=== PATIENT | male | born 1940 | race Caucasian/White ===

== ENCOUNTER 2016-10-09 07:40 | Outpatient (CLI) | payer OTHER ==
[2015-11-20 16:45] VITALS: BP 143/62
[2016-10-10 09:31] LABS: ADENOVIRUS F 40/41 Not Detected (Not Detected); ASTROVIRUS Not Detected (Not Detected); C. DIFFICILE (TOXIN A/B) Not Detected (Not Detected); CRYPTOSPORIDIUM Not Detected (Not Detected); CYCLOSPORA CAYETANENSIS Not Detected (Not Detected); ENTAMOEBA HISTOLYTICA Not Detected (Not Detected); GIARDIA LAMBLIA Not Detected (Not Detected); ROTAVIRUS A Not Detected (Not Detected); SAPOVIRUS Not Detected (Not Detected); VIBRIO CHOLERAE Not Detected (Not Detected)
== END 2016-10-09 07:41 ==
LOC: LAB 07:40
PROVIDERS: ATTEND Physician Assistant
DX: R19.7 Diarrhea, unspecified (principal)
CPT/HCPCS: 87045; 87046; 87427; 87507

== ENCOUNTER 2016-11-26 16:06 | Outpatient (CLI) | payer OTHER ==
[2015-11-20 16:45] VITALS: BP 143/62
[2016-11-26 16:55] LABS: eGFR (African) > 60; eGFR (Non-African) > 60
== END 2016-11-26 16:07 ==
LOC: LAB 16:06
PROVIDERS: ATTEND Family Medicine
DX: E11.9 Type 2 diabetes mellitus without complications (principal); I10 Essential (primary) hypertension
CPT/HCPCS: 36415; 80053; 80061; 82043; 83036

== ENCOUNTER 2017-06-24 08:24 | Outpatient (CLI) | payer OTHER ==
[2015-11-20 16:45] VITALS: BP 143/62
[2017-06-24 09:12] LABS: eGFR (African) > 60; eGFR (Non-African) > 60
== END 2017-06-24 08:25 ==
LOC: LAB 08:24
PROVIDERS: ATTEND Family Medicine
DX: E11.9 Type 2 diabetes mellitus without complications (principal); E78.5 Hyperlipidemia, unspecified; I10 Essential (primary) hypertension
CPT/HCPCS: 36415; 80053; 80061; 83036

== ENCOUNTER 2018-02-09 11:33 | Outpatient (CLI) | payer OTHER ==
[2015-11-20 16:45] VITALS: BP 143/62
--- NOTE | 2018-02-09 12:53 | Diagnostic Imaging Report ---
EMELYN WALLS [facility] [address] [facility].[address] [id number] Report Submission Date: Feb 09, 2018 12:32:34 PM CDT Patient Study Name: GERALDINE DOHERTY Date: Feb 09, 2018 11:38:18 AM CDT Modality Type: DX Gender: M Description: SPINE : 38 Institution: [facility] Physician: EMELYN WALLS Examination: Cervical spine History: RT ARM AND NECK PAIN X 10 DAYS-2 WEEKS. NO KNOWN INJURY (Hx) Comparison exams: None available Findings: 4 views of the cervical spine demonstrate normal height. No anterior compression. No abnormal listhesis. Reversal of the normal curvature at C2/C3. Osteophyte formation. No odontoid abnormality. No prevertebral abnormality Impression: Degenerative spurring. No acute appearing osseous abnormality. If patient is experiencing neurologic symptoms, consider obtaining MRI to further evaluate. Electronically signed on Feb 09, 2018 12:32:34 PM CDT by: Germán [id number]
== END 2018-02-09 11:34 ==
LOC: RAD 11:33
PROVIDERS: ATTEND Physician Assistant
DX: M54.10 Radiculopathy, site unspecified (principal); M54.2 Cervicalgia
CPT/HCPCS: 72040